=== PATIENT | female | born 1980 | race Two or more races ===

== ENCOUNTER 2023-10-04 05:35 | Day surgery (SDC) | payer OTHER ==
[2023-10-03 10:12] LABS: HEMATOCRIT 38.1 % (36.0-45.00); HEMOGLOBIN 12.9 g/dL (12.0-15.00); MEAN CELL VOLUME 86.4 fL (80.00-100.00); MEAN CORPUSCULAR HEMOGLOBIN 29.2 pg (27.00-32.0); MEAN CORPUSCULAR HGB CONC 33.8 g/dl (32.0-36.0); PLATELET COUNT 283 K/uL (150-450); RED BLOOD COUNT 4.41 M/uL (4.00-6.00); RED CELL DISTRIBUTION WIDTH 12.8 % (11.5-14.5)
[2023-10-03 10:35] LABS: URINE APPEARANCE Cloudy; URINE BILIRRUBIN Negative (NEGATIVE); URINE BLOOD Large; URINE COLOR Dark Yellow; URINE GLUCOSE Negative (NEGATIVE); URINE LEUKOCYTE Trace; URINE NITRATE Negative; URINE PROTEIN Trace (NEGATIVE)
[2023-10-03 10:36] LABS: URINE EPITHELIAL CELLS 18.3 uL (0.0-38.8); URINE RBC 2492.2 uL (0.0-20.8); URINE WBC 14.6 uL (0.0-23.2)
[2023-10-03 10:49] LABS: BILIRUBIN TOTAL 0.85 mg/dL (0.3-1.2); CREATININE SERUM 0.56 mg/dL (0.55-1.02); GFR 117.6; GLOBULINA 3.2 G/DL (2.4-3.5); POTASSIUM 3.83 mEq/L (3.5-5.1); TOTAL PROTEIN 7.2 gm/dL (6.4-8.2)
[2023-10-03 10:53] LABS: INR 1.11; PARTIAL THROMBOPLASTIN TIME 27.9 SECONDS (22.0-34.0); PROTHROMBIN TIME 11.6 SECONDS (9.0-11.5)
== END 2023-10-04 18:35 | disposition home or self-care (01) ==
LOC: CIR.AMB 05:35
PROVIDERS: ATTEND Surgery
DX: N60.81 Other benign mammary dysplasias of right breast (principal); N60.91 Unspecified benign mammary dysplasia of right breast; D48.61 Neoplasm of uncertain behavior of right breast; D24.1 Benign neoplasm of right breast; Z88.6 Allergy status to analgesic agent; Z91.040 Latex allergy status